=== PATIENT | male | born 1980 | race Caucasian/White ===

== ENCOUNTER 2020-01-11 06:17 | Emergency (ER) | payer BC ==
[2020-01-11] MEDS ORDERED: Sodium Chloride 0.9% 10 ML Syringe FLUSH PRN (06:38)
[2020-01-11] MEDS ORDERED: Aspirin 81 MG Tab.Chew PO ONE (06:38)
--- NOTE | 2020-01-11 06:44 | EDM.PDOC ---
<Av Reynolds - Last Filed: 01/11/20 06:59> ED HPI GENERAL MEDICAL PROBLEM - General Chief Complaint: Chest Pain Stated Complaint: CHEST PRESSURE Time Seen by Provider: 01/11/20 06:34 Source of Information: Reports: Patient History Limitations: Reports: No Limitations - History of Present Illness INITIAL COMMENTS - FREE TEXT/NARRATIVE: The patient presents with chest pain. He said it woke him up this morning. He says it is a pressure like pain. He does have some shortness of breath with it. Taking a deep breath makes it worse. He said this happened about 3 years ago. He also says the pain has been coming and going over the past 3 days. He denies fever, chills, cough, congestion, runny nose, abdominal pain, nausea or vomiting. He does not smoke. He had a history of hypertension but that is better. He has no diabetes or hypercholesterolemia. Onset: Gradual Duration: Day(s): (3) Location: Reports: Chest Quality: Reports: Pressure Severity: Mild Improves with: Reports: None Worsens with: Reports: Breathing Associated Symptoms: Reports: Chest Pain, Shortness of Breath. Denies: Cough, Fever/Chills, Headaches, Nausea/Vomiting Left Chest Pain Score (Numeric/FACES): 3 - Related Data Allergies Allergy/AdvReac Type Severity Reaction Status Date / Time Penicillins Allergy Cannot Verified 01/11/20 06:28 Remember Home Meds: Home Meds . [No Known Home Meds] 01/11/20 [History] Past Medical History - Past Health History Medical/Surgical History: Denies Medical/Surgical History - Past Surgical History Male Surgical History: Reports: Vasectomy Social & Family History - Family History Family Medical History: Noncontributory - Tobacco Use Tobacco Use Status *Q: Never Tobacco User - Caffeine Use Caffeine Use: Reports: Coffee, Soda - Recreational Drug Use Recreational Drug Use: No ED ROS GENERAL - Review of Systems Review Of Systems: See Below Constitutional: Reports: No Symptoms HEENT: Reports: No Symptoms Respiratory: Reports: Shortness of Breath Cardiovascular: Reports: Chest Pain Endocrine: Reports: No Symptoms GI/Abdominal: Reports: No Symptoms : Reports: No Symptoms Musculoskeletal: Reports: No Symptoms ED EXAM, GENERAL - Physical Exam Exam: See Below Exam Limited By: No Limitations General Appearance: Alert, No Apparent Distress Ears: Normal External Exam Nose: Normal Inspection Head: Atraumatic, Normocephalic Neck: Normal Inspection Respiratory/Chest: No Respiratory Distress, Lungs Clear, Normal Breath Sounds Cardiovascular: Regular Rate, Rhythm, No Edema, No Murmur GI/Abdominal: Soft, Non-Tender, No Organomegaly, No Mass Back Exam: Normal Inspection Extremities: Normal Inspection #1 Interpretation EKG Date: 01/11/20 Time: 06:32 Rhythm: NSR Rate (Beats/Min): 92 [place]: Normal P-Wave: Present QRS: Normal ST-T: Normal QT: Prolonged Course - Re-Assessments/Exams Free Text/Narrative Re-Assessment/Exam: 01/11/20 06:43 I ordered an IV saline lock, aspirin, EKG, CXR and labs. His EKG shows a NSR with no acute changes. 01/11/20 06:59 It is change of sift. Dr Real to take over. Departure - Departure Disposition: Home, Self-Care 01 Clinical Impression: Non-cardiac chest pain, Left-sided chest wall pain Referrals: PCP,None [Primary Care Provider] - Forms: ED Department Discharge Additional Instructions: Evaluation in the emergency room this morning in regards to intermittent left- sided chest pains for the last 2 to 3 days but worse this morning upon awakening. No associated cough fever chills or sputum production. Strong family history of coronary artery disease. Heart tracing her ECG does not show any signs of ischemia or poor blood supply to the heart. It does suggest the heart is mildly enlarged from blood pressure. Chest x-ray is completely normal. Labs also proved to be completely normal with no evidence of blood clots to the lungs or elevated markers for heart attack. Pain appears to be coming from the chest wall as it is worsened by deep breathing and is due to inflammation most likely viral in origin. Suggest Aleve 2 tablets every 8 hours if needed for this discomfort for the next 4 or 5 days until it goes away on its own. Of course come back if the pain worsens or worsens on exertion. Due to your reported family history with a brother having heart attack at age 39 it would be prudent to follow-up with a provider at [facility] to have CT scan of the heart done with calcium scoring as well as perhaps a ECG stress test. Sepsis Event Note (ED) - Evaluation Sepsis Screening Result: No Definite Risk <Neal Real - Last Filed: 01/11/20 07:39> Course - Vital Signs Last Recorded V/S: Last Vital Signs Temp 36.0 C L 01/11/20 06:24 Pulse 88 01/11/20 06:24 Resp 16 01/11/20 06:24 BP 162/95 H 01/11/20 06:24 Pulse Ox - Orders/Labs/Meds Orders: Active Orders 24 hr Category Date Time Status Cardiac Monitoring [RC] . DIRECTED Care 01/11/20 06:38 Active EKG 12 Lead [EKG Documentation Completion] [RC] ROUTINE Care 01/11/20 06:38 Active EKG Documentation Completion [RC] STAT Care 01/11/20 06:39 Active Peripheral IV Care [RC] . DIRECTED Care 01/11/20 06:39 Active Chest 2V [CR] Stat Exams 01/11/20 06:39 Taken Sodium Chloride 0.9% [Saline Flush] Med 01/11/20 06:38 Active 10 ml FLUSH ASDIRECTED PRN Peripheral IV Insertion Adult [OM.PC] Stat Oth 01/11/20 06:38 Ordered Medication Orders Sodium Chloride (Saline Flush) 10 ml FLUSH ASDIRECTED PRN PRN Reason: Keep Vein Open Last Admin: 01/11/20 06:44 Dose: 10 ml Documented by: BRUCE Labs: Laboratory Tests 01/11/20 01/11/20 01/11/20 Range/Units 06:29 06:29 06:29 WBC 4.86 (4.23-9.07) K/mm3 RBC 5.07 (4.63-6.08) M/mm3 Hgb 15.2 (13.7-17.5) gm/dl Hct 45.8 (40.1-51.0) % MCV 90.3 (79.0-92.2) fl MCH 30.0 (25.7-32.2) pg MCHC 33.2 (32.2-35.5) g/dl RDW Std Deviation 42.7 (35.1-43.9) fL Plt Count 173 (163-337) K/mm3 MPV 11.3 (9.4-12.3) fl Neut % (Auto) 55.7 (34.0-67.9) % Lymph % (Auto) 28.0 (21.8-53.1) % [place] % (Auto) 13.8 H (5.3-12.2) % Eos % (Auto) 1.9 (0.8-7.0) Baso % (Auto) 0.2 (0.1-1.2) % Neut # (Auto) 2.71 (1.78-5.38) K/mm3 Lymph # (Auto) 1.36 (1.32-3.57) K/mm3 [place] # (Auto) 0.67 (0.30-0.82) K/mm3 Eos # (Auto) 0.09 (0.04-0.54) K/mm3 Baso # (Auto) 0.01 (0.01-0.08) K/mm3 D-Dimer, Quantitative < 0.19 L (0.19-0.50) mg/L Sodium 142 (136-145) mEq/L Potassium 4.2 (3.5-5.1) mEq/L Chloride 105 (98-107) mEq/L Carbon Dioxide 26 (21-32) mEq/L Anion Gap 15.2 H (5-15) BUN 13 (7-18) mg/dL Creatinine 1.2 (0.7-1.3) mg/dL Est Cr Clr Drug Dosing 95.14 mL/min Estimated GFR (MDRD) > 60 (>60) mL/min BUN/Creatinine Ratio 10.8 L (14-18) Glucose 130 H (74-106) mg/dL Calcium 9.0 (8.5-10.1) mg/dL Total Bilirubin 0.3 (0.2-1.0) mg/dL AST 31 (15-37) U/L ALT 70 H (16-63) U/L Alkaline Phosphatase 67 (46-116) U/L Troponin I < 0.017 (0.00-0.056) ng/mL Total Protein 7.7 (6.4-8.2) g/dl Albumin 4.3 (3.4-5.0) g/dl Globulin 3.4 gm/dL Albumin/Globulin Ratio 1.3 (1-2) Meds: Medications Generic Name Dose Route Start Last Admin Trade Name Freq PRN Reason Stop Dose Admin Sodium Chloride 10 ml 01/11/20 06:38 01/11/20 06:44 Saline Flush FLUSH 10 ml ASDIRECTED PRN Administration Keep Vein Open Discontinued Medications Generic Name Dose Route Start Last Admin Trade Name Saba PRN Reason Stop Dose Admin Aspirin 324 mg 01/11/20 06:38 01/11/20 06:43 Aspirin PO 01/11/20 06:39 324 mg ONETIME ONE Administration - Re-Assessments/Exams Free Text/Narrative Re-Assessment/Exam: 01/11/20 07:21 Care has been assumed from Dr. Reynolds at change of shift. I have reviewed reviewed the patient's ECG. It does not show any signs of ischemia. Likely mild left ventricular hypertrophy pattern late left atrial hypertrophy pattern. Chest x-ray reveals clear lung mcgee and normal sized cardiac silhouette. Mild amount of gas appreciated in the gastric air bubble up underneath the left hemidiaphragm. 01/11/20 07:23 White blood cell count is 4.86 with 56% neutrophils in the auto differential. Hemoglobin is 15.2 with hematocrit of 45.8. Platelet counts 173,000. D-dimer was less than 0.19. Sodium 142 with potassium of 4.2. Chloride is 105 with a bicarb of 26. Anion gap is 15.2. BUN is 13 with a creatinine of 1.2. GFR is greater than 60. Glucose slightly elevated 130. Calcium 9.0 bilirubin 0.3 AST 31 ALT 70 alk phosphatase 67. Troponin I is less than 0.017. Total protein is 7.7 albumin fraction 4.3. 01/11/20 07:36 discussed the findings of the labs with the patient. I have also reexamined the patient I cannot elicit any true chest wall pain. However his pain is worsened by deep breathing suggesting a pleural component of inflammation to his pain. He is afebrile. White count is normal. Advised Aleve 2 tablets every hours as needed to relieve inflammation. Activity as tolerated with no restrictions Departure - Departure Time of Disposition: 07:36 Reason for Transfer *Q: Other Condition: Fair Sepsis Event Note (ED) - Focused Exam Vital Signs: Vital Signs Temp Pulse Resp BP 01/11/20 06:24 36.0 C L 88 16 162/95 H
== END 2020-01-11 07:44 | disposition home or self-care (01) ==
LOC: JD.ED 06:17
DX: R07.89 Other chest pain (principal); Z88.0 Allergy status to penicillin
CPT/HCPCS: 36415; 71046; 80053; 84484; 85025; 85379; 93005; 99285; A9270; 93010; 99283